=== PATIENT | male | born 1980 ===

== ENCOUNTER 2021-12-27 14:27 | Inpatient (IN) | payer OTHER ==
[~2021-12-27] VITALS: Ht 182.9 cm; Wt 104.3 kg
--- NOTE | 2021-12-27 14:33 | NUR ---
SE RECIBE PTE ALERTA, ORIENTADO EN MARGARITA WILIAM ESFERAS. EL MISMO REFIERE DOLOR ABDOMINAL DESDE CANELO Y FIEBRE. REFIERE TENER HISTORIAL DE VESICULA.
--- NOTE | 2021-12-27 16:33 | NUR ---
PACIENTE EVALUADO POR LA DRA ESCOBAR QUIEN ORDENA [place] MEDICO. SE ORIENTA SOBRE EL MISMO, REFIERE ENTENDER Y RN GARCIA EJECUTA ORDENES MEDICAS. PENDIENTE US ABDOMINAL. SE NOTIFICA EL MISMO.
[2021-12-28] MEDS ORDERED: PREVACID30 MG (09:14)
[2021-12-30] MEDS ORDERED: ULTRAM50 MG PO (11:01)
[2021-12-30] MEDS ORDERED: AMOX-CLAV 875-1 EACH PO (11:01)
== END 2021-12-30 12:03 | disposition home or self-care (01) | DRG 418 ==
LOC: ER 14:27 → SURH 19:37 → SURG 12-28 09:51
PROVIDERS: ADMIT Surgery; ATTEND Surgery
PROC: BF532Z0 Other Imaging of Gallbladder and Bile Ducts using Fluorescing Agent, Intraoperative (ICD-10-PCS; 2021-12-28)
PROC: 0FT44ZZ Resection of Gallbladder, Percutaneous Endoscopic Approach (ICD-10-PCS; principal; 2021-12-28 07:00)
DX: K80.00 Calculus of gallbladder with acute cholecystitis without obstruction (principal); F10.239 Alcohol dependence with withdrawal, unspecified; R10.11 Right upper quadrant pain; I10 Essential (primary) hypertension; Z87.19 Personal history of other diseases of the digestive system; Z20.822 Contact with and (suspected) exposure to COVID-19